=== PATIENT | male | born 1990 | race Caucasian/White ===

== ENCOUNTER → 2021-06-30 | Outpatient (CLI) | payer OTHER ==
[~2021-06-30] MED LIST: ALL DAY ALLERGY10 M2 PO; ANUSOL HC SUPP1 SUPP PR; BREO ELLIPTA 21 EACH INH; BUPRENORPHIN-N1 EACH SL; CELEXA10 MG PO; COGENTIN 2MG TAB2 MG PO; COLACE 100MG C100 MG PO; CYCLOBENZAPRINE10 MG PO; GABAPENTIN800 MG PO; IBU800 MG PO; LOVENOX SY40 MG/0.4 SQ; MONTELUKAST SOD10 MG PO; OXYCONTIN10 MG PO; PERCOCET 7.5-31 EACH PO; RISPERDAL0.5 MG PO; SEROQUEL100 MG PO; SEROQUEL25 MG PO; SERTRALINE HCL25 MG PO; TIZANIDINE HCL4 MG PO; VENTOLIN HFA 66.7 GM INH; VOLTAREN ARTHRI20 GM TP
== END ==
LOC: KOH-I 11:12
DX: M54.5 Low back pain (principal); M51.36 Other intervertebral disc degeneration, lumbar region
CPT/HCPCS: 72148

== ENCOUNTER 2022-05-20 17:58 | Emergency (ER) | payer OTHER | END 2022-05-20 18:37 | disposition left against medical advice (07) | LOC: ER1 17:58 | DX: Z53.21 Procedure and treatment not carried out due to patient leaving prior to being seen by health care provider (principal) ==

== ENCOUNTER → 2022-06-16 | Outpatient (CLI) | payer OTHER ==
[2022-06-16 12:32] LABS: HEMOGLOBIN 15.1 gm/dl (14.0-17.5); RED BLOOD COUNT 4.94 M/UL (4.20-5.50); WHITE BLOOD COUNT 4.5 K/UL (4.5-11.0)
[2022-06-16 12:53] LABS: BUN/CREATININE RATIO 9 (0-10)
[2022-06-17 06:11] LABS: HBSAG SCREEN Negative (Negative); HCV AB <0.1 (0.0-0.9); HEP A AB, IGM Negative (Negative); HEP B CORE AB, IGM Positive (Negative)
[2022-06-17 08:15] LABS: HIV AB/P24 AG SCREEN Non Reactive (Non Reactive)
== END ==
LOC: LAB 11:50
PROVIDERS: Nurse Practitioner
DX: F11.20 Opioid dependence, uncomplicated (principal)
CPT/HCPCS: 36415; 80053; 80074; 85027; 87389